=== PATIENT | male | born 1940 | race American Indian/Alaskan Native ===

== ENCOUNTER 2016-05-18 14:07 | Inpatient (IN) | payer MEDICARE ==
[2016-05-18] MEDS ORDERED: NITROSTAT SL PRN ×2 (16:48→19:51)
--- NOTE | 2016-05-18 16:59 | Emergency Department Report ---
ED Chest Pain HPI - General Chief Complaint: Chest Pain Stated Complaint: CHEST PAIN Time Seen by Provider: 05/18/16 16:03 Source: patient, EMS Mode of arrival: Stretcher Limitations: No Limitations - History of Present Illness Initial Comments: Patient is a 75-year-old male with history of hypertension presenting today because of chest pain and shortness of breath. Patient states that the symptoms began gone on for the last 3-4 days however worsened significantly in the past 1 day. He says today he went to see his doctor and in the waiting room he started having severe palpitations and shortness of breath he started to stand up too and noticed severe lightheadedness and started developing left- sided chest pressure that was nonradiating and not associated with any nausea vomiting or diaphoresis. Patient has never had pain like this before. He's never had a cardiac workup including no stress test or angiography. Denies any fevers, chills, cough or any other new symptoms. - Related Data Home Medications Medication Instructions Recorded Confirmed Last Taken Allopurinol 300 mg DAILY 05/18/16 05/18/16 Unknown Christine 5-20 mg 5 mg PO DAILY 05/18/16 05/18/16 Unknown Flomax 0.4 mg PO DAILY 05/18/16 05/18/16 Unknown Gabapentin 100 mg PO TID 05/18/16 05/18/16 Unknown Lipitor 40 mg PO DAILY 05/18/16 05/18/16 Unknown Allergies Allergy/AdvReac Type Severity Reaction Status Date / Time No Known Allergies Allergy Verified 05/18/16 16:04 TRISTAN score - Tristan Score Age > 65: (1) Yes Aspirin use within the Past 7 Days: (1) Yes 3 or more CAD Risk Factors: (0) No 2 or more Angina events in past 24 hrs: (1) Yes Known CAD with more than 50% Stenosis: (0) No Elevated Cardiac Markers: (0) No ST Deviation Greater than 0.5mm: (0) No TRISTAN Score: 3 ED Review of Systems ROS: Stated complaint: CHEST PAIN Other details as noted in HPI Comment: All other systems reviewed and negative Constitutional: denies: chills, fever Respiratory: SOB at rest Cardiovascular: chest pain, palpitations, dyspnea on exertion Gastrointestinal: denies: abdominal pain, vomiting Skin: denies: rash Neurological: denies: headache Psychiatric: denies: anxiety ED Past Medical Hx - Past Medical History Hx Hypertension: Yes - Surgical History Past Surgical History?: Yes Additional Surgical History: pt has had back, hip and rotator cuff surgery - Social History Smoking Status: Never Smoker Substance Use Type: None - Medications Home Medications: Home Medications Medication Instructions Recorded Confirmed Last Taken Type Allopurinol 300 mg DAILY 05/18/16 05/18/16 Unknown History Christine 5-20 mg 5 mg PO DAILY 05/18/16 05/18/16 Unknown History Flomax 0.4 mg PO DAILY 05/18/16 05/18/16 Unknown History Gabapentin 100 mg PO TID 05/18/16 05/18/16 Unknown History Lipitor 40 mg PO DAILY 05/18/16 05/18/16 Unknown History ED Physical Exam - General Limitations: No Limitations General appearance: other (uncomfortable) - Head Head exam: Present: atraumatic - Eye Eye exam: Present: normal appearance - ENT ENT exam: Present: normal exam - Neck Neck exam: Present: normal inspection - Respiratory Respiratory exam: Present: normal lung sounds bilaterally. Absent: respiratory distress - Cardiovascular Cardiovascular Exam: Present: regular rate, normal rhythm - GI/Abdominal GI/Abdominal exam: Present: soft. Absent: distended, tenderness - Extremities Exam Extremities exam: Present: normal inspection, normal capillary refill. Absent: pedal edema - Neurological Exam Neurological exam: Present: alert, oriented X3 - Psychiatric Psychiatric exam: Present: anxious - Skin Skin exam: Present: intact ED Course Vital Signs 05/18/16 05/18/16 16:06 18:04 Temperature 987.2 F H Pulse Rate 67 74 Respiratory 16 16 Rate Blood Pressure 158/67 Blood Pressure 145/74 [Left] O2 Sat by Pulse 100 95 Oximetry ED Medical Decision Making - Lab Data Result diagrams: 05/18/16 17:56 05/18/16 17:56 - Medical Decision Making Patient's history and physical is concerning for acute coronary syndrome IV, labs, chest x-ray EKG shows normal sinus rhythm without any ST-T changes, baseline is erratic nitroglycerin ordered for prn cp Troponin and other labs unremarkable CXR shows no acute process will admit for ro acs given patient's concerning story, risk factors and no prior workup Patient took a 81 mg aspirin this morning, and received 3 81 mg aspirins. EMS prior to arrival. Critical care attestation.: If time is entered above; I have spent that time in minutes in the direct care of this critically ill patient, excluding procedure time. ED Disposition Clinical Impression: Chest pain Qualifiers: Chest pain type: unspecified Qualified Code(s): R07.9 - Chest pain, unspecified Disposition: OP ADMITTED IP TO THIS HOSP Is pt being admited?: Yes Does the pt Need Aspirin: No Condition: Serious Instructions: Chest Pain (ED) Time of Disposition: 19:24 (Transitioned care to the Hospitalist)
[2016-05-18 18:33] LABS: Eosinophils % (Auto) 0.8 % (0.0-4.3); Hematocrit 38.6 % (35.5-45.6); Hemoglobin 12.8 gm/dl (11.8-15.2); Mean Corpuscular HGB Conc 33 % (32-34); Mean Corpuscular Hemoglobin 28 pg (28-32); Mean Corpuscular Volume 86 fl (84-94); Platelet Count 262 K/mm3 (140-440); Red Cell Distribution Width 15.5 % (13.2-15.2); White Blood Count 5.6 K/mm3 (4.5-11.0)
[2016-05-18 18:55] LABS: Anion Gap 21 mmol/L; BUN/Creatinine Ratio 8.57; Blood Urea Nitrogen 12 mg/dL (9-20); Calcium 9.2 mg/dL (8.4-10.2); Carbon Dioxide 22 mmol/L (22-30); Chloride 101.8 mmol/L (98-107); Glucose 96 mg/dL (75-100); Potassium 3.9 mmol/L (3.6-5.0); Sodium 141 mmol/L (137-145)
--- NOTE | 2016-05-18 19:29 | History and Physical Report ---
History of Present Illness Date of examination: 05/18/16 Date of admission: 05/18/16 Chief complaint: chest pain , palpitations for 3 days History of present illness: Mr. Aguilar is a 75 yo AAM who was brought to the ER for evaluation of chest pain which started 3 days ago intermittent and varying in intensity; sob; no diaphoresis; 9/10 at the time of evaluation; pressing in nature; no radiation; no h/o chest pain in the past or cardiac work up; reported that he recently had a hip replacement Past History Past Medical History: hypertension, other (gout) Past Surgical History: Other (LT hip replacement; rotatotor cuff; eye ) Social history: full code. denies: smoking, alcohol abuse, prescription drug abuse, IV drug use Family history: hypertension Medications and Allergies Allergies Allergy/AdvReac Type Severity Reaction Status Date / Time No Known Allergies Allergy Verified 05/18/16 16:04 Home Medications Medication Instructions Recorded Confirmed Last Taken Type Allopurinol 300 mg DAILY 05/18/16 05/18/16 Unknown History Christine 5-20 mg 5 mg PO DAILY 05/18/16 05/18/16 Unknown History Flomax 0.4 mg PO DAILY 05/18/16 05/18/16 Unknown History Gabapentin 100 mg PO TID 05/18/16 05/18/16 Unknown History Lipitor 40 mg PO DAILY 05/18/16 05/18/16 Unknown History Active Meds: Active Medications Nitroglycerin (Nitrostat) 0.4 mg SL .Q5MIN PRN PRN Reason: Chest Pain Review of Systems All systems: negative Constitutional: no weight loss, no weight gain, no fever, no chills Ears, nose, mouth and throat: no ear pain, no ear discharge, no tinnitis, no decreased hearing Cardiovascular: other (as in the [facility]) Respiratory: shortness of breath, no cough, no cough with sputum, no excessive sputum, no hemoptysis Gastrointestinal: no abdominal pain, no nausea, no vomiting, no diarrhea, no constipation, no change in bowel habits Genitourinary Male: no urinary frequency, no nocturia, no incontinence Rectal: no pain, no incontinence, no bleeding Musculoskeletal: no neck stiffness, no neck pain, no shooting arm pain, no arm numbness/tingling Integumentary: no rash, no pruritis, no redness, no sores Neurological: no head injury, no transient paralysis, no paralysis, no weakness , no parathesias Psychiatric: no anxiety, no memory loss, no change in sleep habits, no sleep disturbances Endocrine: no cold intolerance, no heat intolerance, no polyphagia, no excessive thirst Hematologic/Lymphatic: no easy bruising, no easy bleeding Allergic/Immunologic: no urticaria, no allergic rhinitis Exam - Constitutional Vitals: Temp Pulse Resp BP Pulse Ox 987.2 F H 74 16 145/74 95 05/18/16 16:06 05/18/16 18:04 05/18/16 18:04 05/18/16 18:04 05/18/16 18:04 General appearance: Present: no acute distress, well-nourished - EENT Eyes: Present: PERRL. Absent: EOM intact, scleral icterus, conjunctival injection ENT: hearing intact, clear oral mucosa, no oropharyngeal erythema, no poor dentition - Neck Neck: Present: supple, normal ROM, enlarged thyroid - Respiratory Respiratory effort: normal Respiratory: negative: diminished, rales, rhonchi, wheezing - Cardiovascular Rhythm: regular Heart Sounds: Present: S1 & S2. Absent: gallop - Extremities Extremities: no ischemia, pulses intact, pulses symmetrical, No edema Peripheral Pulses: within normal limits - Abdominal General gastrointestinal: Present: soft, non-tender, non-distended, normal bowel sounds Male genitourinary: Present: deferred - Rectal Rectal Exam: deferred - Integumentary Integumentary: Present: clear - Musculoskeletal Musculoskeletal: strength equal bilaterally - Psychiatric Psychiatric: appropriate mood/affect, intact judgment & insight, cooperative - Neurologic Neurologic: CNII-XII intact, moves all extremities Results - Labs CBC & Chem 7: 05/18/16 17:56 05/18/16 17:56 Labs: Abnormal lab results 05/18/16 Range/Units 17:56 RDW 15.5 H (13.2-15.2) % [place] % (Auto) 8.1 H (0.0-7.3) % Lymph # 1.1 L (1.2-5.4) K/mm3 Seg Neutrophils % 71.2 H (40.0-70.0) % - Imaging and Cardiology EKG: image reviewed (sinus no acute ST segment changes ) Chest x-ray: pending Assessment and Plan 1. Atypical chest pain with palpitations - tp r/o ACS- will admit as an inpatient as more than 2 MN are required for treatmement; asa; check statin; serial CE; stress test; echo' IV morphine and SL Nitro prn chest pain; check dimer in view of recent hip sx; consult cardiology; TSH 2. Benign HTN with urgency- start po metoprolol 25 mg bid and adjust as needed; gm Na diet 3.Gout- stable; restart home meds 4. DVT prophylaxis- heparin
[2016-05-18] MEDS ORDERED: ASPIRIN PO ONE ×2 (19:46→22:57)
[2016-05-18] MEDS ORDERED: SODIUM CHLORIDE FLUSH SYRINGE 10 ML IV PRN (19:51)
[2016-05-18] MEDS ORDERED: NON-FORMULARY (Gabapentin 100 MG) PO SCH (20:00)
[2016-05-18] MEDS: MORPHINE IV PRN ×2 (20:15→23:05)
[2016-05-18] MEDS ORDERED: LOPRESSOR PO ONE (21:00)
[2016-05-18] MEDS ORDERED: LOPRESSOR ONE (21:12)
[2016-05-18] MEDS: PEPCID PO SCH (23:04)
[2016-05-18] MEDS: HEPARIN SUB-Q SCH (23:04)
[2016-05-18] MEDS: COLACE PO SCH (23:06)
[2016-05-18 23:14] LABS: Creatine Kinase MB 2.2 ng/mL (0.0-4.0)
[2016-05-19] MEDS ORDERED: NEURONTIN PO SCH (08:00)
[2016-05-19] MEDS ORDERED: LEXISCAN IV ONE ×2 (08:14→10:18)
[2016-05-19] MEDS ORDERED: NON-FORMULARY (Lipitor 40 MG) PO SCH (10:00)
[2016-05-19] MEDS ORDERED: LOPRESSOR PO SCH (10:00)
[2016-05-19] MEDS ORDERED: FLOMAX PO SCH (10:00)
[2016-05-19] MEDS ORDERED: ZYLOPRIM PO SCH ×2 (10:00→10:30)
[2016-05-19] MEDS ORDERED: NON-FORMULARY (Flomax 0.4 MG) PO SCH (10:00)
[2016-05-19] MEDS ORDERED: ECOTRIN PO SCH (10:00)
[2016-05-19] MEDS ORDERED: NON-FORMULARY (Allopurinol 300 MG) PO SCH (10:00)
[2016-05-19] MEDS ORDERED: COZAAR PO SCH (10:00)
[2016-05-19] MEDS ORDERED: AZOR PO SCH (10:00)
[2016-05-19] MEDS ORDERED: NORVASC PO SCH (10:00)
--- NOTE | 2016-05-19 10:01 | XRay Report ---
Single view chest: History: Chest pain. Findings: Normal cardiomediastinal silhouette the trachea is midline. No consolidation, pneumothorax or pleural effusion. Impression: No acute cardiopulmonary findings.
[2016-05-19] MEDS: COLACE PO SCH (10:56)
[2016-05-19] MEDS: PEPCID PO SCH (10:57)
[2016-05-19] MEDS: HEPARIN SUB-Q SCH (10:57)
[2016-05-19 12:52] VITALS: BP 159/86
--- NOTE | 2016-05-19 13:20 | Consultation ---
History of Present Illness Consult date: 05/19/16 Consult reason: chest pain History of present illness: The patient is a 75-year-old man who presented with atypical, nonexertional chest pain. His chest pain was poorly characterized. Patient is a very poor historian. Workup in the hospital includes serial ECGs that was normal sinus rhythm, no ischemic changes. On the telemetry strips, there is no significant dysrhythmias. Cardiac isoenzymes were normal. Today he underwent a Persantine thallium stress test was also normal. Past History Past Medical History: hypertension, other (gout) Past Surgical History: Other (LT hip replacement; rotatotor cuff; eye ) Social history: full code. denies: smoking, alcohol abuse, prescription drug abuse, IV drug use Family history: hypertension Medications and Allergies Allergies Allergy/AdvReac Type Severity Reaction Status Date / Time No Known Allergies Allergy Verified 05/18/16 16:04 Home Medications Medication Instructions Recorded Confirmed Last Taken Type Allopurinol 300 mg DAILY 05/18/16 05/18/16 Unknown History Christine 5-20 mg 5 mg PO DAILY 05/18/16 05/18/16 Unknown History Flomax 0.4 mg PO DAILY 05/18/16 05/18/16 Unknown History Gabapentin 100 mg PO TID 05/18/16 05/18/16 Unknown History Lipitor 40 mg PO DAILY 05/18/16 05/18/16 Unknown History Active Meds: Active Medications Allopurinol (Zyloprim) 300 mg PO QDAY [facility] Last Admin: 05/19/16 10:58 Dose: Not Given Amlodipine Besylate (Norvasc) 5 mg PO QDAY [facility] Last Admin: 05/19/16 10:57 Dose: Not Given Aspirin (Ecotrin) 325 mg PO QDAY [facility] Last Admin: 05/19/16 10:57 Dose: Not Given Atorvastatin Calcium (Lipitor) 40 mg PO QHS [facility] Last Admin: 05/18/16 23:03 Dose: 40 mg Docusate Sodium (Colace) 100 mg PO BID [facility] Last Admin: 05/19/16 10:56 Dose: Not Given Famotidine (Pepcid) 20 mg PO BID [facility] Last Admin: 05/19/16 10:57 Dose: Not Given Gabapentin (Neurontin) 100 mg PO TID [facility] Heparin Sodium (Porcine) (Heparin) 5,000 unit SUB-Q Q12HR [facility] Last Admin: 05/19/16 10:57 Dose: Not Given Losartan Potassium (Cozaar) 50 mg PO QDAY [facility] Last Admin: 05/19/16 10:57 Dose: Not Given Metoprolol Tartrate (Lopressor) 25 mg PO BID [facility] Last Admin: 05/19/16 10:57 Dose: Not Given Morphine Sulfate (Morphine) 2 mg IV Q5MIN PRN PRN Reason: Chest Pain Last Admin: 05/18/16 23:05 Dose: 2 mg Nitroglycerin (Nitrostat) 0.4 mg SL .Q5MIN PRN PRN Reason: Chest Pain Nitroglycerin (Nitrostat) 0.4 mg SL Q5M PRN PRN Reason: Chest Pain Sodium Chloride (Sodium Chloride Flush Syringe 10 Ml) 10 ml IV PRN PRN PRN Reason: LINE FLUSH Tamsulosin HCl (Flomax) 0.4 mg PO QDAY [facility] Last Admin: 05/19/16 10:57 Dose: Not Given Review of Systems Cardiovascular: chest pain, shortness of breath, no orthopnea, no palpitations, no rapid/irregular heart beat, no edema, no syncope, no lightheadedness Physical Examination Vital Signs Temp Pulse Resp BP Pulse Ox 987.2 F H 67 16 158/67 100 05/18/16 16:06 05/18/16 16:06 05/18/16 16:06 05/18/16 16:06 05/18/16 16:06 General appearance: no acute distress HEENT: Positive: PERRL Neck: Positive: neck supple Cardiac: Positive: Reg Rate and Rhythm Lungs: Positive: Decreased Breath Sounds Neuro: Positive: Grossly Intact Abdomen: Positive: Soft Male genitourinary: Positive: deferred Skin: Positive: Clear Extremities: Absent: edema Results 05/18/16 17:56 05/18/16 17:56 Cardiac Enzymes 05/18/16 Range/Units 22:16 CK-MB (CK-2) 2.2 (0.0-4.0) ng/mL EKG interpretations - Telemetry EKG Rhythm: Sinus Rhythm Assessment and Plan - Patient Problems (1) Chest pain Current Visit: Yes Status: Acute Qualifiers: Chest pain type: unspecified Qualified Code(s): R07.9 - Chest pain, unspecified Plan to address problem: Atypical chest pain with normal ECG, normal cardiac enzymes and normal thallium stress test. Okay for patient to be discharged from a cardiac standpoint, follow-up in our office in one to 2 weeks and return to the emergency room immediately if there is recurrent chest pain.
--- NOTE | 2016-05-19 14:26 | Discharge Summary ---
Providers - Providers Date of Admission: 05/18/16 19:25 Date of discharge: 05/19/16 Attending physician: EMMY OCONNOR 05/18/16 19:51 Consult to Physician [CONS] Routine Consulting Provider: JOHN KRUEGER Reason For Exam: chest pain, palpitations Place consult to:: JOHN NOYOLA Notified:: RACHEL AT [facility] Phone number called:: [phone] Was contact made?: Yes If yes, spoke with:: RACHEL AT [facility] Time called:: 21:57 Comment:: WILL NOTIFY IN AM PER RACHEL Primary care physician: NUCLEAR PHYSICS PROFESSOR Hospitalization Condition: Serious Disposition: DISCHARGED TO HOME OR SELFCARE Core Measure Documentation - Palliative Care Palliative Care/ Comfort Measures: Not Applicable - Core Measures Any of the following diagnoses?: none Exam - Constitutional Vitals: Temp Pulse Resp BP Pulse Ox 98.4 F 78 18 159/86 98 05/19/16 12:50 05/19/16 12:50 05/19/16 12:50 05/19/16 12:50 05/19/16 12:50 Plan Activity: advance as tolerated, fall precautions Diet: other (cardiac diet) Follow up with: PRIMARY MD MALLORY [Primary Care Provider] - 3-5 Days FLACO PRITCHETT MD [Staff Physician] - 7 Days Prescriptions: Allopurinol 300 mg PO DAILY #30 Flomax 0.4 mg PO DAILY #30 Gabapentin 100 mg PO TID #90 Lipitor 40 mg PO DAILY #30 Famotidine [Pepcid] 20 mg PO BID #30 tablet Losartan [Cozaar] 50 mg PO QDAY #30 tablet Metoprolol [Lopressor TAB] 25 mg PO BID #60 tablet
--- NOTE | 2016-05-19 22:23 | Treadmill Report ---
THALLIUM STRESS TEST LEFT VENTRICLE: Left ventricular chamber size is within normal. Perfusion study demonstrates evidence of mild diaphragmatic attenuation artifact, otherwise homogeneous uptake of the tracer in all segments, no significant defects identified. Gated analysis demonstrates normal left ventricular systolic function, ejection fraction 59%. CONCLUSION: Normal myocardial perfusion study. JOB# [id number] CA/NTS
--- NOTE | 2016-05-22 11:47 | Query- Chest Pain ---
Leigha Cohen Date:_05/22/16 Him Director/CDS:_Munira/Stevie Quintero Phone#:_[phone] Exercise your independent professional judgment when responding to query. Questions asked do not imply a particular answer is desired or expected. We greatly appreciate your clarification on this issue. Clinical Documentation States: 75 Y/O Male admitted on 05/18/16 with Hx. of HTN and Gout presents with 3 day history of intermittent chest pain varying in intesity, SOB, 9/10 at time of evaluation pressing in nature with no radiation. Clinical Findings Show: EKG:Sinus bradycardia ECHO:Normal myocardial perfusion study Imaging:No cardiopulmonary acute process on Chest x-ray. EF: 59% Please document the etiology of Chest Pain: [ ] Myocardial Infarction [ ] Pneumonia [ ] Mediastinitis [ ] Costochondritis [ ] Pulmonary Embolism [ ] Coronary Artery Disease [x ] GERD [ ] Other: [ ] Comment/Explanation: Present on Admission: [ x] Yes (Y) [ ] Clinically undeterminable (W) [ ] No(N) Please document response in your Progress Notes and/or Discharge Summary and indicate if the condition was present on admission. MONICAD
== END 2016-05-19 16:50 | disposition home or self-care (01) | DRG 392 ==
LOC: ED 14:07 → 4A 19:25
PROVIDERS: ADMIT Hospitalist; ATTEND Hospitalist
DX: K21.9 Gastro-esophageal reflux disease without esophagitis (principal); I10 Essential (primary) hypertension; Z96.642 Presence of left artificial hip joint; M10.9 Gout, unspecified; I16.0 Hypertensive urgency; Z98.890 Other specified postprocedural states; Z82.49 Family history of ischemic heart disease and other diseases of the circulatory system; Z79.899 Other long term (current) drug therapy
CPT/HCPCS: 36415; 71010; 78452; 80048; 80061; 82550; 82553; 84443; 84484; 85025; 93005; 93010; 93017; 94760; A9270-GY; A9502; J1644; J2270; J2785